=== PATIENT | female | born 1970 | race Caucasian/White ===

== ENCOUNTER 2018-11-21 15:41 | Emergency (ER) | payer SELFPAY ==
[~2018-11-21] VITALS: Ht 172.7 cm; Wt 71.7 kg
[2018-11-21] MEDS ORDERED: MAG HYDROX/AL HYDROX/SIMETH 30 ML LIQUID UDC PO ONE (16:15)
[2018-11-21] MEDS ORDERED: PANTOPRAZOLE SODIUM 40 MG TABLET.DR PO ONE ×2 (16:15→16:21)
[2018-11-21] MEDS ORDERED: ONDANSETRON ODT 4 MG TAB.RAPDIS SL ONE (16:15)
[2018-11-21] MEDS ORDERED: LIDOCAINE VISCUS 2% 15 ML UDC MM ONE (16:15)
[2018-11-21] MEDS ORDERED: MAG HYDROX/AL HYDROX/SIMETH 30 ML LIQUID UDC ONE (16:20)
[2018-11-21] MEDS ORDERED: ONDANSETRON ODT 4 MG TAB.RAPDIS ONE (16:20)
[2018-11-21] MEDS ORDERED: LIDOCAINE VISCUS 2% 15 ML UDC ONE (16:20)
--- NOTE | 2018-11-21 16:57 | NUR ---
PT STATES FELLING BETTER, ABLE TO TOLORATE PO INTAKE.
--- NOTE | 2018-11-21 17:05 | NUR ---
Patient discharged to home in stable conditon. Written and verbal after care instructions given. Patient verbalizes understanding of instructions.
[2018-11-21 17:06] VITALS: BP 112/69
== END 2018-11-21 17:07 | disposition home or self-care (01) ==
LOC: ER 15:41
DX: K29.70 Gastritis, unspecified, without bleeding (principal)
CPT/HCPCS: A4663; Q0162